=== PATIENT | female | born 1955 | race Caucasian/White ===

== ENCOUNTER → 2016-10-21 | Outpatient (CLI) | payer OTHER ==
[~2016-10-21] MED LIST: ACTONEL; ACTONEL 35MG TA35 MG PO; ACTONEL35 MG PO; ALTACE 2.5MG T2.5 MG PO; ALTACE 5MG5 MG PO; AMBIEN CR6.25 MG PO; ARICEPT; BISOPROLOL5 MG PO; CALCIUM 1200 W/1 SGL PO; CALCIUM 500500 M2 PO; CALTRATE 600 +1 TAB PO; CALTRATE-600 W600 MG PO; CENTRUM SILVER1 TA1 PO; CETIRIZINE PO; CLARITIN; CLARITIN 1010 MG/TAB PO; CLARITIN10 MG PO; CLORAZEPATE3.75 MG PO; CO ENZYME Q-1050 MG PO; CYMBALTA; CYMBALTA 30MG30 MG PO; CYMBALTA 60MG60 MG PO; CYMBALTA60 MG PO; DOMPERIDONE10 MG/CAP PO; DOXYCYCLINE 10100 MG PO; FISH OIL CONC1000 MG PO; FLAX SEED OIL1000 MG PO; FLEXERIL; FLEXERIL 1010 MG/TAB PO; FLEXERIL PO; GABAPENTIN300 M1 PO; GABAPENTIN600 MG PO; GABITRIL4 MG PO; GLUTAMINE PO; HCTZ; HCTZ 25MG25 MG PO; INDERAL; INDERAL 10MG10 MG PO; INDERAL 20MG20 MG PO; INDERAL LA 60MG60 MG PO; INDERAL PO; LORATADINE10 MG PO; LYRICA; LYRICA75 MG PO; MANGANESE PO; MUCINEX PO; MULTIPLE VITAMI1 CAP PO; MVI; NASONEX SPRAY IH; NASONEX SPRAY NS; NASONEX0.05 MG/AC NS; NATURAL E400 IU PO; NATURE'S BLEND1 T16 PO; ONE DAILY1 TA2 PO; PANCREATIC ENZY1 CAP PO; PANTOPRAZOLE40 MG PO; PREMARIN CREAM; PRILOSEC PO; PROPRANOLOL10 MG PO; PROTONIX 40MG T40 MG PO; PROTONIX40 MG/Pack PO; QVAR0.04 MG/AC IH; RAMIPRIL2.5 MG PO; RAMIPRIL5 MG PO; REMERON SOLTAB15 MG PO; REQUIP 1MG T1 MG/TAB PO; REQUIP5 MG PO; ROPINIROLE HYDRO1 MG PO; TOPAMAX 25MG25 MG PO; TOPAMAX25 M1 PO; TOPAMAX50 MG PO; TOPIRAMATE; TRAMADOL; ULTRAM 50MG TAB50 MG PO; ULTRAM50 MG PO; VALIUM 2MG T2 MG/TAB PO; VITAMIN B COMPL1 SGL PO; VITAMIN B125000 MCG SL; VITAMIN B6250 MG PO; VITAMIN D PO; VITAMIN D32000 IU PO; WELLBUTRIN XL150 MG PO; ZANTAC150 MG PO; ZYRTEC 10MG10 MG PO; [UNRECOGNIZED DRUG - OTHER] PO; [UNRECOGNIZED DRUG - OTHER] PO; [UNRECOGNIZED DRUG - OTHER] PO; [UNRECOGNIZED DRUG - OTHER] PO; [UNRECOGNIZED DRUG - OTHER] PO; asthma inhaler
== END ==
LOC: BHSO 10:02
DX: F33.42 Major depressive disorder, recurrent, in full remission (principal)

== ENCOUNTER → 2016-12-15 | Outpatient (CLI) | payer OTHER | LOC: BHSO 10:05 | DX: F06.32 Mood disorder due to known physiological condition with major depressive-like episode (principal) ==

== ENCOUNTER → 2017-01-30 | Outpatient (CLI) | payer OTHER | LOC: COL.RAD 08:55 | DX: M75.111 Incomplete rotator cuff tear or rupture of right shoulder, not specified as traumatic (principal); M75.21 Bicipital tendinitis, right shoulder; M19.011 Primary osteoarthritis, right shoulder; M24.111 Other articular cartilage disorders, right shoulder; Y99.9 Unspecified external cause status ==

== ENCOUNTER → 2017-03-06 | Outpatient (CLI) | payer OTHER | LOC: BHSO 15:20 | DX: F06.32 Mood disorder due to known physiological condition with major depressive-like episode (principal) ==

== ENCOUNTER → 2017-05-25 | Outpatient (CLI) | payer OTHER | LOC: BHSO 11:03 | DX: F06.32 Mood disorder due to known physiological condition with major depressive-like episode (principal) ==

== ENCOUNTER → 2017-06-03 | Outpatient (CLI) | payer OTHER | LOC: MC.RAD 09:00 | DX: Z12.31 Encounter for screening mammogram for malignant neoplasm of breast (principal) ==

== ENCOUNTER 2017-09-11 13:16 | Outpatient (CLI) | payer OTHER ==
[~2017-09-11] VITALS: Ht 157.5 cm; Wt 51.0 kg
[~2017-09-11 13:16] MED LIST changes: -NATURE'S BLEND1 T16 PO; +STRESS FORMULA1 T16 PO
[2017-09-11] MEDS ORDERED: OSCAL 500 TAB500 MG PO (14:19)
[2017-09-11] MEDS ORDERED: VITAMIN D 1001000 IU PO (14:20)
[2017-09-11] MEDS ORDERED: MAG-OX 400400 MG/TAB PO (14:20)
[2017-09-11 14:27] VITALS: BP 129/61; PULSE 69; TEMP 97.9
== END 2017-09-11 15:25 | disposition home or self-care (01) ==
LOC: EUO 13:16
DX: M81.0 Age-related osteoporosis without current pathological fracture (principal)
CPT/HCPCS: J3489

== ENCOUNTER → 2017-09-14 | Outpatient (CLI) | payer OTHER ==
[~2017-09-14] MED LIST changes: +MAG-OX 400400 MG/TAB PO; +OSCAL 500 TAB500 MG PO; +VITAMIN D 1001000 IU PO
== END ==
LOC: BHSO 10:43
DX: F06.32 Mood disorder due to known physiological condition with major depressive-like episode (principal)

== ENCOUNTER 2017-10-15 15:54 | Emergency (ER) | payer OTHER ==
[~2017-10-15] VITALS: Ht 157.5 cm; Wt 48.2 kg
[2017-10-15 15:57] VITALS: TEMP 96.8
[2017-10-15] MEDS ORDERED: PERCOCET 325 MG1 TA2 PO (17:28)
[2017-10-15] MEDS ORDERED: DULCOLAX STOOL100 MG PO (17:28)
[2017-10-15 18:27] VITALS: BP 125/53; PULSE 77
== END 2017-10-15 18:27 | disposition home or self-care (01) ==
LOC: COL.ER 15:54
DX: S52.321A Displaced transverse fracture of shaft of right radius, initial encounter for closed fracture (principal); S52.224A Nondisplaced transverse fracture of shaft of right ulna, initial encounter for closed fracture; S50.811A Abrasion of right forearm, initial encounter; F32.9 Major depressive disorder, single episode, unspecified; I10 Essential (primary) hypertension; W20.8XXA Other cause of strike by thrown, projected or falling object, initial encounter; Y92.009 Unspecified place in unspecified non-institutional (private) residence as the place of occurrence of the external cause
CPT/HCPCS: J3010

== ENCOUNTER 2017-10-27 08:09 | Day surgery (SDC) | payer OTHER ==
[~2017-10-27] VITALS: Ht 157.5 cm; Wt 51.8 kg
[~2017-10-27 08:09] MED LIST changes: +DULCOLAX STOOL100 MG PO; +PERCOCET 325 MG1 TA2 PO
[2017-10-27 09:24] VITALS: BP 123/58; PULSE 77; TEMP 97.9
[2017-10-27 14:19] VITALS: BP 118/56; PULSE 69
[2017-10-27 14:34] VITALS: BP 106/45; PULSE 66; TEMP 97.5
[2017-10-27 14:49] VITALS: BP 116/51; PULSE 73
[2017-10-27 15:04] VITALS: BP 117/54; PULSE 79
[2017-10-27 15:34] VITALS: BP 105/50; PULSE 78
== END 2017-10-27 15:55 | disposition home or self-care (01) ==
LOC: SDCO 08:09
DX: S52.321A Displaced transverse fracture of shaft of right radius, initial encounter for closed fracture (principal); S52.221A Displaced transverse fracture of shaft of right ulna, initial encounter for closed fracture; J45.909 Unspecified asthma, uncomplicated; G47.33 Obstructive sleep apnea (adult) (pediatric); M19.90 Unspecified osteoarthritis, unspecified site; G43.909 Migraine, unspecified, not intractable, without status migrainosus; F32.9 Major depressive disorder, single episode, unspecified; I12.9 Hypertensive chronic kidney disease with stage 1 through stage 4 chronic kidney disease, or unspecified chronic kidney disease; N18.2 Chronic kidney disease, stage 2 (mild); G89.18 Other acute postprocedural pain
CPT/HCPCS: C1713; J1100; J2250; J2405; J2704; J3010; J7120

== ENCOUNTER → 2017-11-16 | Outpatient (CLI) | payer OTHER | LOC: BHSO 10:46 | DX: F06.32 Mood disorder due to known physiological condition with major depressive-like episode (principal) | CPT/HCPCS: G0463 ==

== ENCOUNTER → 2018-02-02 | Outpatient (CLI) | payer OTHER | LOC: BHSO 14:31 | DX: F06.32 Mood disorder due to known physiological condition with major depressive-like episode (principal) | CPT/HCPCS: G0463 ==

== ENCOUNTER 2018-02-03 15:00 | Outpatient (RCR) | payer OTHER | END 2018-02-07 | disposition home or self-care (01) | LOC: WSOT | DX: Z47.89 Encounter for other orthopedic aftercare (principal) ==

== ENCOUNTER 2018-02-24 15:00 | Outpatient (RCR) | payer OTHER | END 2018-03-03 09:09 | disposition home or self-care (01) | LOC: WSOT 15:00 | DX: S52.91XD Unspecified fracture of right forearm, subsequent encounter for closed fracture with routine healing (principal) ==

== ENCOUNTER → 2018-05-05 | Outpatient (CLI) | payer OTHER | LOC: BHSO 13:21 | DX: F06.32 Mood disorder due to known physiological condition with major depressive-like episode (principal) | CPT/HCPCS: G0463 ==

== ENCOUNTER → 2018-05-13 | Outpatient (CLI) | payer OTHER | LOC: COL.LAB 13:14 | PROVIDERS: Internal Medicine Endocrinology, Diabetes & Metabolism | DX: M81.0 Age-related osteoporosis without current pathological fracture (principal) ==

== ENCOUNTER → 2018-05-14 | Outpatient (CLI) | payer OTHER | LOC: COL.CARD 08:00 | DX: R03.0 Elevated blood-pressure reading, without diagnosis of hypertension (principal) ==

== ENCOUNTER 2018-07-29 01:29 | Emergency (ER) | payer OTHER ==
[~2018-07-29] VITALS: Ht 157.5 cm; Wt 59.1 kg
[2018-07-29 01:32] VITALS: BP 131/72; TEMP 98.2
[2018-07-29 02:25] LABS: BASO % 0.5 % (0.0-2.0); EOS # 0.1 (0.0-0.7); EOS % 1.9 % (0-4.0); GRAN % 48.1 % (42.2-75.2); HEMATOCRIT 38.4 % (37.0-47.0); HEMOGLOBIN 13.1 g/dl (12.5-16.0); LYMPH # 2.4 (1.2-3.4); MEAN CELL VOLUME 91 fl (80.0-100.0); MEAN CORPUSCULAR HEMOGLOBIN 31 pg (27.0-31.0); MEAN CORPUSCULAR HGB CONC 34 g/dl (33.0-37.0); MEAN PLATELET VOLUME 8.9 fl (7.4-10.4); MONO # 0.7 (0.1-0.6); MONO % 11.2 % (1.7-9.3); PLATELET COUNT 244 K/mm3 (130-400); RED BLOOD COUNT 4.24 M/mm3 (4.10-5.30); REDCELL DISTRIBUTION WIDTH-CV 12.8 % (11.5-14.5)
[2018-07-29] MEDS ORDERED: TAZTIA120 (02:33)
[2018-07-29] MEDS ORDERED: WELLBUTRIN XL300 M1 PO (02:33)
[2018-07-29] MEDS ORDERED: REQUIP 1MG T1 MG/TAB PO (02:34)
[2018-07-29] MEDS ORDERED: CYMBALTA 20MG20 MG PO (02:34)
[2018-07-29 02:50] LABS: ALANINE AMINOTRANSFERASE 35 U/L (9-52); ALBUMIN 3.9 gm/dL (3.5-5.0); ALKALINE PHOSPHATASE 62 U/L (50-136); ANION GAP 6 mmol/L (7-16); AST,SGOT 25 U/L (15-37); BILIRUBIN,TOTAL 0.3 mg/dL (0.0-1.0); BLOOD UREA NITROGEN 18 mg/dL (7-17); CALCIUM 9.5 mg/dL (8.4-10.2); CARBON DIOXIDE 31 mmol/L (22-30); CHLORIDE 105 mmol/L (98-107); CREATININE, serum 0.93 mg/dL (0.52-1.25); GLUCOSE 94 mg/dL (74-106); POTASSIUM 4.5 mmol/L (3.4-5.0); SODIUM 141 mmol/L (137-145); TOTAL PROTEIN 6.9 gm/dL (6.4-8.2)
[2018-07-29 03:02] LABS: TROPONIN-I < 0.012 ng/mL (0.000-0.034)
[2018-07-29] MEDS ORDERED: FLEXERIL 1010 MG/TAB PO (03:05)
[2018-07-29 04:23] VITALS: PULSE 65
== END 2018-07-29 04:24 | disposition home or self-care (01) ==
LOC: COL.ER 01:29
PROVIDERS: Physician Assistant
DX: R56.9 Unspecified convulsions (principal); R07.89 Other chest pain; R25.2 Cramp and spasm; I10 Essential (primary) hypertension; F32.9 Major depressive disorder, single episode, unspecified; F41.9 Anxiety disorder, unspecified
CPT/HCPCS: Q9967

== ENCOUNTER 2018-08-07 12:38 | Observation (INO) | payer OTHER ==
[~2018-08-07] VITALS: Ht 157.5 cm; Wt 58.0 kg
[~2018-08-07 12:38] MED LIST changes: +CYMBALTA 20MG20 MG PO; +TAZTIA120; +WELLBUTRIN XL300 M1 PO
[2018-08-07 13:35] LABS: BASO % 0.4 % (0.0-2.0); EOS # 0.1 (0.0-0.7); EOS % 1.4 % (0-4.0); GRAN % 53.2 % (42.2-75.2); HEMATOCRIT 40.4 % (37.0-47.0); HEMOGLOBIN 13.9 g/dl (12.5-16.0); LYMPH # 1.9 (1.2-3.4); LYMPH % 33.8 % (20.0-51.0); MEAN CELL VOLUME 91 fl (80.0-100.0); MEAN CORPUSCULAR HEMOGLOBIN 31 pg (27.0-31.0); MEAN CORPUSCULAR HGB CONC 34 g/dl (33.0-37.0); MEAN PLATELET VOLUME 9.1 fl (7.4-10.4); MONO # 0.6 (0.1-0.6); MONO % 10.8 % (1.7-9.3); PLATELET COUNT 236 K/mm3 (130-400); RED BLOOD COUNT 4.45 M/mm3 (4.10-5.30); REDCELL DISTRIBUTION WIDTH-CV 12.4 % (11.5-14.5)
[2018-08-07 13:49] LABS: ALANINE AMINOTRANSFERASE 29 U/L (9-52); ALBUMIN 4.2 gm/dL (3.5-5.0); ALKALINE PHOSPHATASE 61 U/L (50-136); ANION GAP 6 mmol/L (7-16); AST,SGOT 38 U/L (15-37); BILIRUBIN,TOTAL 0.5 mg/dL (0.0-1.0); BLOOD UREA NITROGEN 20 mg/dL (7-17); CARBON DIOXIDE 27 mmol/L (22-30); CHLORIDE 105 mmol/L (98-107); CREATININE, serum 0.81 mg/dL (0.52-1.25); GLUCOSE 90 mg/dL (74-106); MAGNESIUM 2.2 mg/dL (1.6-2.3); SODIUM 137 mmol/L (137-145); TOTAL PROTEIN 7.2 gm/dL (6.4-8.2)
[2018-08-07 14:00] LABS: ALCOHOL(ethanol),MEDICAL < 10 mg/dL
[2018-08-07 14:04] LABS: PROLACTIN 7.3 ng/mL (3.0-18.6)
[2018-08-07 15:47] LABS: COLLECTION METHOD CLEAN CATCH
[2018-08-07 15:52] LABS: MUCOUS Present /lpf; PH 6 (5-8); SQUAMOUS EPITHELIAL 0-2 /hpf; URINE APPEARANCE Clear; URINE BACTERIA Rare /hpf; URINE BILIRUBIN Negative (NEGATIVE); URINE BLOOD Negative (NEGATIVE); URINE COLOR Straw; URINE GLUCOSE Negative (NEGATIVE); URINE KETONE Negative (NEGATIVE); URINE LEUKOCYTE ESTERASE Negative (NEGATIVE); URINE NITRATE Negative (NEGATIVE); URINE PROTEIN(semi-quant) Negative (NEGATIVE); URINE RBC 0-2 /hpf; URINE UROBILINOGEN Negative (NEGATIVE); URINE WBC 0-2 /hpf
[2018-08-07 16:01] LABS: TRICYCLIC ANTIDEPRESS URINE NEGATIVE
[2018-08-07 18:11] VITALS: BP 110/85; PULSE 76; TEMP 98.2
[2018-08-07] MEDS ORDERED: ATIVAN 0.50.5 MG/TAB PO (18:36)
[2018-08-08 00:40] VITALS: BP 108/55; PULSE 61; TEMP 98.5
[2018-08-08 04:08] VITALS: BP 116/45; PULSE 63; TEMP 98.5
[2018-08-08 06:00] LABS: BASO % 0.2 % (0.0-2.0); EOS # 0.1 (0.0-0.7); GRAN # 2.1 (1.4-6.5); GRAN % 46.2 % (42.2-75.2); HEMATOCRIT 39.4 % (37.0-47.0); HEMOGLOBIN 13.3 g/dl (12.5-16.0); LYMPH # 1.9 (1.2-3.4); LYMPH % 41.1 % (20.0-51.0); MEAN CELL VOLUME 91 fl (80.0-100.0); MEAN CORPUSCULAR HEMOGLOBIN 31 pg (27.0-31.0); MEAN CORPUSCULAR HGB CONC 34 g/dl (33.0-37.0); MEAN PLATELET VOLUME 9.1 fl (7.4-10.4); MONO # 0.5 (0.1-0.6); MONO % 10.3 % (1.7-9.3); PLATELET COUNT 210 K/mm3 (130-400); RED BLOOD COUNT 4.31 M/mm3 (4.10-5.30); REDCELL DISTRIBUTION WIDTH-CV 12.5 % (11.5-14.5)
[2018-08-08 06:10] LABS: CALCIUM 8.9 mg/dL (8.4-10.2); CREATININE, serum 0.83 mg/dL (0.52-1.25); MAGNESIUM 2.2 mg/dL (1.6-2.3); PHOSPHOROUS 3.4 mg/dL (2.5-4.5); POTASSIUM 4.3 mmol/L (3.4-5.0)
[2018-08-08 06:39] LABS: THYROID STIMULATING HORMONE 5.26 uIU/mL (0.465-4.680)
[2018-08-08 09:13] VITALS: BP 130/73; PULSE 71; TEMP 97.9
[2018-08-08 13:01] VITALS: BP 98/51; PULSE 84; TEMP 98.3
[2018-08-08 17:49] VITALS: BP 131/56; PULSE 75; TEMP 98.3
[2018-08-08 20:00] VITALS: BP 139/75; PULSE 79; TEMP 97.7
[2018-08-09] VITALS: BP 95/44; PULSE 55; TEMP 97.9
[2018-08-09 04:00] VITALS: BP 122/56; PULSE 73; TEMP 97
[2018-08-09 06:22] VITALS: BP 95/44; PULSE 55
[2018-08-09 07:59] VITALS: BP 100/46; PULSE 82; TEMP 98.1
[2018-08-09 12:01] VITALS: BP 128/60; PULSE 79; TEMP 98.2
[2018-08-09 15:16] VITALS: BP 107/42; PULSE 78; TEMP 97.8
[2018-08-10 00:14] VITALS: BP 96/47; PULSE 96; TEMP 97.3
[2018-08-10 05:55] LABS: BASO % 0.5 % (0.0-2.0); EOS # 0.1 (0.0-0.7); EOS % 1.5 % (0-4.0); GRAN # 1.7 (1.4-6.5); GRAN % 44.2 % (42.2-75.2); HEMATOCRIT 38.2 % (37.0-47.0); HEMOGLOBIN 13.1 g/dl (12.5-16.0); LYMPH # 1.6 (1.2-3.4); LYMPH % 39.8 % (20.0-51.0); MEAN CELL VOLUME 90 fl (80.0-100.0); MEAN CORPUSCULAR HEMOGLOBIN 31 pg (27.0-31.0); MEAN CORPUSCULAR HGB CONC 34 g/dl (33.0-37.0); MEAN PLATELET VOLUME 9.1 fl (7.4-10.4); MONO # 0.5 (0.1-0.6); MONO % 13.5 % (1.7-9.3); PLATELET COUNT 218 K/mm3 (130-400); RED BLOOD COUNT 4.26 M/mm3 (4.10-5.30); REDCELL DISTRIBUTION WIDTH-CV 12.4 % (11.5-14.5)
[2018-08-10 06:10] LABS: CALCIUM 8.9 mg/dL (8.4-10.2); CREATININE, serum 0.85 mg/dL (0.52-1.25); POTASSIUM 4.3 mmol/L (3.4-5.0)
[2018-08-10 07:39] VITALS: BP 117/58; PULSE 80; TEMP 97.9
[2018-08-10 11:01] VITALS: BP 133/74; PULSE 74; TEMP 97.8
[2018-08-10] MEDS ORDERED: LAMICTAL 25MG T25 MG PO (11:44)
[2018-08-10 11:58] LABS: HIV 1/2 Antibodies Non-Reactive; HIV-1p24 Antigen Non-Reactive
[2018-08-11 00:55] LABS: RPR (VDRL) Negative (Negative)
[2018-08-12 12:28] LABS: LYME DISEASE ANTIBODIES Negative (Negative)
== END 2018-08-10 13:25 | disposition home or self-care (01) ==
LOC: COL.ER 12:38 → SURG 17:20
PROVIDERS: Hospitalist; Internal Medicine Infectious Disease; Nurse Practitioner Primary Care; Physician Assistant
DX: G40.909 Epilepsy, unspecified, not intractable, without status epilepticus (principal); R52 Pain, unspecified; F32.9 Major depressive disorder, single episode, unspecified; F41.9 Anxiety disorder, unspecified; I10 Essential (primary) hypertension; G25.81 Restless legs syndrome; E03.9 Hypothyroidism, unspecified; G47.33 Obstructive sleep apnea (adult) (pediatric); Z90.710 Acquired absence of both cervix and uterus; Z88.8 Allergy status to other drugs, medicaments and biological substances; Z88.6 Allergy status to analgesic agent; Z88.0 Allergy status to penicillin; Z88.3 Allergy status to other anti-infective agents; Z91.018 Allergy to other foods; Z88.2 Allergy status to sulfonamides; Z88.1 Allergy status to other antibiotic agents; Z91.012 Allergy to eggs; Z91.011 Allergy to milk products; Z91.040 Latex allergy status; Z91.048 Other nonmedicinal substance allergy status
CPT/HCPCS: 99232-AI; 99233-AI; A9585; G0378; G8978-GP; G8979-GP; G8987-GO; G8988-GO; J1200; J1644; J1885; J2060; J2270; J2405

== ENCOUNTER 2018-09-21 14:58 | Outpatient (CLI) | payer OTHER ==
[~2018-09-21] VITALS: Ht 157.5 cm; Wt 58.1 kg
[~2018-09-21 14:58] MED LIST changes: +ATIVAN 0.50.5 MG/TAB PO; +LAMICTAL 25MG T25 MG PO
[2018-09-21 15:21] VITALS: BP 153/60; PULSE 64; TEMP 98.2
[2018-09-21 15:37] LABS: CALCIUM 9.4 mg/dL (8.4-10.2); CREATININE, serum 1.01 mg/dL (0.52-1.25)
== END 2018-09-21 16:30 | disposition home or self-care (01) ==
LOC: EUO 14:58
PROVIDERS: Family Medicine
DX: M81.0 Age-related osteoporosis without current pathological fracture (principal); E55.9 Vitamin D deficiency, unspecified
CPT/HCPCS: J3489

== ENCOUNTER → 2018-12-03 | Outpatient (CLI) | payer OTHER | LOC: BHSO 15:55 | DX: F06.32 Mood disorder due to known physiological condition with major depressive-like episode (principal) | CPT/HCPCS: G0463 ==

== ENCOUNTER → 2019-03-01 | Outpatient (CLI) | payer OTHER | LOC: BHSO 15:24 | DX: F06.32 Mood disorder due to known physiological condition with major depressive-like episode (principal) | CPT/HCPCS: G0463 ==

== ENCOUNTER → 2019-05-31 | Outpatient (CLI) | payer OTHER | LOC: BHSO 13:56 | DX: F06.32 Mood disorder due to known physiological condition with major depressive-like episode (principal) | CPT/HCPCS: G0463 ==

== ENCOUNTER → 2019-07-05 | Outpatient (CLI) | payer OTHER | LOC: MC.RAD 10:38 | DX: Z12.31 Encounter for screening mammogram for malignant neoplasm of breast (principal) ==

== ENCOUNTER → 2019-09-13 | Outpatient (CLI) | payer OTHER | LOC: BHSO 14:57 | DX: F06.32 Mood disorder due to known physiological condition with major depressive-like episode (principal) | CPT/HCPCS: G0463 ==

== ENCOUNTER → 2020-03-13 | Outpatient (CLI) | payer OTHER | LOC: BHSO 10:35 | DX: F06.32 Mood disorder due to known physiological condition with major depressive-like episode (principal) | CPT/HCPCS: G0463 ==

== ENCOUNTER → 2020-07-05 | Outpatient (CLI) | payer OTHER | LOC: COL.LAB | DX: M79.89 Other specified soft tissue disorders (principal) ==

== ENCOUNTER → 2020-10-16 | Outpatient (CLI) | payer OTHER | LOC: ZCOL.LAB 14:54 | DX: I10 Essential (primary) hypertension (principal) ==

== ENCOUNTER 2020-10-18 15:46 | Emergency (ER) | payer OTHER ==
[~2020-10-18] VITALS: Ht 157.5 cm; Wt 57.3 kg
[2020-10-18 15:55] VITALS: TEMP 97.9
[2020-10-18 17:12] LABS: BASO % 0.4 % (0.0-2.0); EOS # 0.1 (0.0-0.7); EOS % 0.8 % (0-4.0); GRAN # 4.2 (1.4-6.5); GRAN % 54.3 % (42.2-75.2); HEMATOCRIT 40.2 % (37.0-47.0); HEMOGLOBIN 13.8 g/dl (12.5-16.0); LYMPH # 2.7 (1.2-3.4); LYMPH % 35.1 % (20.0-51.0); MEAN CELL VOLUME 89 fl (80.0-100.0); MEAN CORPUSCULAR HEMOGLOBIN 31 pg (27.0-31.0); MEAN CORPUSCULAR HGB CONC 34 g/dl (33.0-37.0); MEAN PLATELET VOLUME 9.4 fl (7.4-10.4); MONO # 0.7 (0.1-0.6); MONO % 9.1 % (1.7-9.3); PLATELET COUNT 295 K/mm3 (130-400); RED BLOOD COUNT 4.52 M/mm3 (4.10-5.30); REDCELL DISTRIBUTION WIDTH-CV 12.5 % (11.5-14.5)
[2020-10-18 17:26] LABS: ALANINE AMINOTRANSFERASE 23 U/L (4-34); ALBUMIN 4.9 gm/dL (3.5-5.0); ALKALINE PHOSPHATASE 68 U/L (50-136); ANION GAP 11 mmol/L (7-16); AST,SGOT 35 U/L (15-37); BILIRUBIN,TOTAL 0.8 mg/dL (0.0-1.0); BLOOD UREA NITROGEN 19 mg/dL (7-17); CARBON DIOXIDE 25 mmol/L (22-30); CHLORIDE 102 mmol/L (98-107); CREATININE, serum 0.95 (0.52-1.25); GLUCOSE 100 mg/dL (74-106); POTASSIUM 3.7 mmol/L (3.4-5.0); SODIUM 138 mmol/L (137-145); TOTAL PROTEIN 8.1 gm/dL (6.4-8.2)
[2020-10-18 17:43] LABS: TROPONIN-I < 0.012 ng/mL (0.000-0.035)
[2020-10-18 19:00] VITALS: BP 122/57; PULSE 76
== END 2020-10-18 19:00 | disposition home or self-care (01) ==
LOC: COL.ER 15:46
PROVIDERS: Nurse Practitioner
DX: R06.02 Shortness of breath (principal); Z20.822 Contact with and (suspected) exposure to COVID-19; Z88.6 Allergy status to analgesic agent; Z88.0 Allergy status to penicillin; Z88.1 Allergy status to other antibiotic agents; Z88.8 Allergy status to other drugs, medicaments and biological substances
CPT/HCPCS: J2060; Q9967

== ENCOUNTER 2020-11-02 15:27 | Emergency (ER) | payer OTHER ==
[~2020-11-02] VITALS: Ht 157.5 cm; Wt 55.9 kg
[2020-11-02 15:38] VITALS: TEMP 96.7
[2020-11-02 18:30] VITALS: BP 144/71; PULSE 83
== END 2020-11-02 18:30 | disposition home or self-care (01) ==
LOC: COL.ER 15:27
DX: R06.00 Dyspnea, unspecified (principal); T88.1XXA Other complications following immunization, not elsewhere classified, initial encounter; F41.9 Anxiety disorder, unspecified; Z88.6 Allergy status to analgesic agent; Z88.2 Allergy status to sulfonamides; Z88.0 Allergy status to penicillin; Z88.1 Allergy status to other antibiotic agents; Z88.8 Allergy status to other drugs, medicaments and biological substances
CPT/HCPCS: J1100

== ENCOUNTER → 2020-12-11 | Outpatient (CLI) | payer OTHER ==
[2020-12-11 13:08] LABS: CALCIUM 9.1 mg/dL (8.4-10.2); CREATININE, serum 0.78 (0.52-1.25); POTASSIUM 4.1 mmol/L (3.4-5.0)
== END ==
LOC: COL.RAD
PROVIDERS: Family Medicine
DX: N28.89 Other specified disorders of kidney and ureter (principal); Z98.890 Other specified postprocedural states; R82.5 Elevated urine levels of drugs, medicaments and biological substances; I10 Essential (primary) hypertension; Z90.710 Acquired absence of both cervix and uterus
CPT/HCPCS: Q9967

== ENCOUNTER → 2021-02-26 | Outpatient (CLI) | payer OTHER | LOC: COL.RAD 09:00 | DX: R25.1 Tremor, unspecified (principal); M79.604 Pain in right leg; M79.605 Pain in left leg; M54.5 Low back pain; G89.29 Other chronic pain; R25.9 Unspecified abnormal involuntary movements; R29.2 Abnormal reflex | CPT/HCPCS: A9585 ==

== ENCOUNTER 2021-06-14 15:00 | Outpatient (RCR) | payer MEDICARE, OTHER ==
[2021-07-30] MEDS ORDERED: ALTACE 2.5MG T2.5 MG PO (08:36)
[2021-07-30] MEDS ORDERED: ZYRTEC 10MG10 MG PO (08:37)
== END 2021-08-18 | disposition home or self-care (01) ==
LOC: MKS.ESL.OT
DX: G56.03 Carpal tunnel syndrome, bilateral upper limbs (principal)

== ENCOUNTER → 2021-07-09 | Outpatient (CLI) | payer MEDICARE, OTHER | LOC: COL.RAD 08:54 | DX: M47.896 Other spondylosis, lumbar region (principal); M51.36 Other intervertebral disc degeneration, lumbar region; M50.221 Other cervical disc displacement at C4-C5 level; M48.02 Spinal stenosis, cervical region; R25.1 Tremor, unspecified; R25.9 Unspecified abnormal involuntary movements; R29.2 Abnormal reflex ==

== ENCOUNTER 2021-07-30 08:04 | Day surgery (SDC) | payer MEDICARE, OTHER ==
[~2021-07-30] VITALS: Ht 157.5 cm; Wt 52.8 kg
[2021-07-30] MEDS ORDERED: ALTACE 2.5MG T2.5 MG PO (08:36)
[2021-07-30] MEDS ORDERED: ZYRTEC 10MG10 MG PO (08:37)
[2021-07-30 08:58] VITALS: BP 155/73; PULSE 67; TEMP 97.7
[2021-07-30 10:15] VITALS: BP 121/63; PULSE 63; TEMP 97.8
--- NOTE | 2021-07-30 10:15 | NUR ---
PATIENT BROUGHT BACK TO ENDO ROOM 4 VIA CART. AMBULATED TO CHAIR WITHOUT DIFFICULTY. PLACED ON MONITORS, VITAL SIGNS STABLE. REPORT RECIEVED FROM MARY MERCEDES. REQUESTS SPRITE AND APPLESAUCE AT THIS TIME. TO PICK PATIENT UP. CALL NIEVES WITHIN REACH, WARM BLANKET PROVIDED. 1030- VITAL SIGNS STABLE. TOLERATING FOOD AND DRINK WITHOUT DIFFICULTY. DR. SCHULTE AT BEDSIDE TO EXPLAIN RESULTS. 1055- PATIENT STATES SHE FEELS READY TO GO HOME AT THIS TIME. IV REMOVED, INTACT. PATIENT TO GET DRESSED AT THIS TIME. 1105- PATIENT BROUGHT DOWN TO LOBBY VIA WHEEL CHAIR. TO DRIVE PATIENT HOME. ALL BELONGINGS IN HAND.
[2021-07-30 10:30] VITALS: BP 136/65; PULSE 70
[2021-07-30 10:45] VITALS: BP 145/80; PULSE 61
== END 2021-07-30 11:00 | disposition home or self-care (01) ==
LOC: SDCO 08:04
DX: K64.0 First degree hemorrhoids (principal); K57.30 Diverticulosis of large intestine without perforation or abscess without bleeding; K59.09 Other constipation; K92.1 Melena; Q79.60 Ehlers-Danlos syndrome, unspecified; J43.9 Emphysema, unspecified; J84.10 Pulmonary fibrosis, unspecified; I11.0 Hypertensive heart disease with heart failure; I50.30 Unspecified diastolic (congestive) heart failure; R56.9 Unspecified convulsions; F41.9 Anxiety disorder, unspecified; Z79.899 Other long term (current) drug therapy; Z86.11 Personal history of tuberculosis
CPT/HCPCS: J2704; J7120

== ENCOUNTER → 2021-11-05 | Outpatient (CLI) | payer MEDICARE, OTHER | LOC: COL.RAD 10:53 | DX: I71.4 Abdominal aortic aneurysm, without rupture (principal); I05.9 Rheumatic mitral valve disease, unspecified; Z90.710 Acquired absence of both cervix and uterus | CPT/HCPCS: Q9967 ==

== ENCOUNTER → 2022-03-14 | Outpatient (CLI) | payer MEDICARE, OTHER | LOC: COL.RAD 09:47 | DX: G20 Parkinson's disease (principal); R13.10 Dysphagia, unspecified ==

== ENCOUNTER → 2022-03-18 15:09 | Outpatient (RCR) | payer MEDICARE, OTHER | END | disposition home or self-care (01) | LOC: MKS.ESL.OT 08-19 13:00 | DX: G56.03 Carpal tunnel syndrome, bilateral upper limbs (principal) ==

== ENCOUNTER 2023-01-29 13:24 | Inpatient (IN) | payer MEDICARE, OTHER ==
[~2023-01-29] VITALS: Ht 154.9 cm; Wt 52.6 kg
[~2023-01-29 13:24] MED LIST changes: +ALDACTONE 25MG25 M1 PO; +ATIVAN 1MG T1 MG/TAB PO; +CARDIZEM CD 12120 MG PO; +COZAAR 50MG50 MG/TAB PO; +DESYREL 50MG50 MG PO; +GALZIN50 MG PO; +GLUTATHIONE RE500 MG PO; +L-GLUTAMINE500 M5 PO; +PEPCID 20MG TAB20 MG PO; +PHARMASSURE MA500 MG PO; +PHOS LO; +REQUIP XL4 MG PO; +REQUIP XL6 MG PO; +STOOL SOFTENER100 M2 PO; +SYSTANE 0.3-0.1 EACH OP; +THE MEDICINE S200 M2 PO; +VITAMIND3 5000 PO; +XIIDRA1 EACH OP
[2023-01-29 13:47] LABS: BASO % 0.4 % (0.0-2.0); EOS # 0.1 K/mm3 (0.0-0.7); EOS % 1.3 % (0.0-4.0); GRAN # 2.5 K/mm3 (1.4-6.5); GRAN % 47.3 % (42.2-75.2); HEMATOCRIT 37.8 % (37.0-47.0); HEMOGLOBIN 12.8 g/dl (12.5-16.0); LYMPH # 2.2 K/mm3 (1.2-3.4); LYMPH % 41.9 % (20.0-51.0); MEAN CELL VOLUME 93 fl (80.0-100.0); MEAN CORPUSCULAR HEMOGLOBIN 32 pg (27-31); MEAN CORPUSCULAR HGB CONC 34 g/dl (33.0-37.0); MONO # 0.5 K/mm3 (0.1-0.6); MONO % 9.1 % (1.7-9.3); PLATELET COUNT 237 K/mm3 (130-400); RED BLOOD COUNT 4.06 M/mm3 (4.10-5.30); REDCELL DISTRIBUTION WIDTH-CV 12.3 % (11.5-14.5)
[2023-01-29 14:06] LABS: ALANINE AMINOTRANSFERASE 9 U/L (0-55); ALBUMIN 4.6 gm/dL (3.4-4.8); ALKALINE PHOSPHATASE 60 U/L (40-150); ANION GAP 11 mmol/L (7-16); AST,SGOT 21 U/L (5-34); BILIRUBIN,TOTAL 0.6 mg/dL (0.2-1.2); BLOOD UREA NITROGEN 17 mg/dL (10-20); CALCIUM 9.8 mg/dL (8.4-10.2); CARBON DIOXIDE 26 mmol/L (23-31); CHLORIDE 104 mmol/L (98-107); CREATININE, serum 1.03 mg/dL (0.57-1.11); GLUCOSE 162 mg/dL (70-99); POTASSIUM 3.8 mmol/L (3.5-4.5); SODIUM 141 mmol/L (136-145); TOTAL PROTEIN 7.2 gm/dL (6.2-8.1)
[2023-01-29 14:57] LABS: COLLECTION METHOD CLEAN CATCH
[2023-01-29 15:06] LABS: PH 7.5 (5.0-8.5); URINE APPEARANCE Clear (CLEAR/HAZY); URINE BLOOD TRACE-INTACT (NEGATIVE); URINE COLOR Yellow (YELLOW); URINE GLUCOSE Negative (NEGATIVE); URINE KETONE Negative (NEGATIVE); URINE NITRATE Negative (NEGATIVE); URINE PROTEIN(semi-quant) Negative (NEGATIVE); URINE UROBILINOGEN 0.2 E.U/dL (0.2-1.0)
[2023-01-29 15:09] LABS: ALCOHOL(ethanol),MEDICAL < 10 mg/dL (0-10)
[2023-01-29 15:11] LABS: SQUAMOUS EPITHELIAL 0-2 /hpf (0-10); URINE BACTERIA None Seen /hpf (NONE SEEN); URINE RBC 0-2 /hpf (0-2)
[2023-01-29 15:19] LABS: TROPONIN-I < 0.010 ng/mL (0.00-0.033)
[2023-01-29] MEDS ORDERED: SINEMET 25/101 UDTAB PO (16:48)
--- NOTE | 2023-01-29 19:45 | NUR ---
RECEIVED REPORT FROM Tommy MERCEDES, STEVE. WAITING FOR PATIENT ARRIVAL FOR ADMIT TO ROOM 345.
[2023-01-29 20:11] VITALS: BP 137/60; PULSE 79; TEMP 98.2
[2023-01-29 21:06] LABS: CHOLESTEROL RISK RATIO 2.9
[2023-01-29] MEDS ORDERED: [UNRECOGNIZED DRUG - OTHER] PO (21:25)
[2023-01-30] VITALS (11 sets, daily range): BP systolic 113–153; BP diastolic 41–68; PULSE 74–86; TEMP 97.4–98.7
--- NOTE | 2023-01-30 06:37 | NUR ---
INFORMED DR ANAYA OF NEURO CONSULT WITH DOCTOR MENTIONING HE WILL SEE PATIENT TOMORROW, HE IS NOT MARKETING ASSOCIATE TODAY.
--- NOTE | 2023-01-30 07:20 | NUR ---
CHANGE OF SHIFT REPORT GIVEN TO DAY SHIFT RNASHLEY.
[2023-01-30 07:34] LABS: GRAN # 3.9 K/mm3 (1.4-6.5); GRAN % 87.1 % (42.2-75.2); HEMATOCRIT 34.7 % (37.0-47.0); HEMOGLOBIN 11.9 g/dl (12.5-16.0); LYMPH # 0.5 K/mm3 (1.2-3.4); MEAN CELL VOLUME 92 fl (80.0-100.0); MEAN CORPUSCULAR HEMOGLOBIN 32 pg (27-31); MEAN CORPUSCULAR HGB CONC 34 g/dl (33.0-37.0); MEAN PLATELET VOLUME 9.8 fl (7.4-10.4); MONO % 0.7 % (1.7-9.3); PLATELET COUNT 226 K/mm3 (130-400); RED BLOOD COUNT 3.76 M/mm3 (4.10-5.30)
[2023-01-30 07:55] LABS: ALBUMIN 3.7 gm/dL (3.4-4.8); CALCIUM 8.8 mg/dL (8.4-10.2); CREATININE, serum 0.99 mg/dL (0.57-1.11); MAGNESIUM 2.2 mg/dL (1.6-2.6); PHOSPHOROUS 2.6 mg/dL (2.3-4.7); POTASSIUM 4.4 mmol/L (3.5-4.5)
--- NOTE | 2023-01-30 08:50 | NUR ---
HOSPITALIST TEAM ROUNDING. NEUROLOGY UNAVAILABLE TODAY BUT WAS CONSULTED BY DOCUMENT MANAGEMENT SPECIALIST NURSE FOR CONSULT, SEE ORDERS. HOSPITALIST TEAM INFORMED NURSING THE MRI MACHINE IS DOWN, LIVE AMMUNITION INSPECTOR NOTIFIED TO POSSIBLY TRANSPORT PATIENT VIA EMS TODAY FOR MRI SCAN. ALSO CONTACTED 'S OFFICE FOR RECORDS.
--- NOTE | 2023-01-30 09:08 | NUR ---
Gas Appliance Repairer met with Patient at bedside to conduct Care Managment Assessment and discuss discharge planning. Patient lives in [place], [place] with her Yves P:[phone]. Patient is established with PCP, Dr. Brody and is covered by [facility] and [facility] for insurance. Patient denies the use of O2 and endorses the use of a 4WW prior to admission. Patient reports that she has needed assistance with ambulating in her home at times in the past week. Patient reports independence with IADLs. Patient reports to not have Advanced Directives at this time and requests AD paperwork. SW provided AD paperwork. Discharge Plan: Pending further treatment team assessment.
--- NOTE | 2023-01-30 09:50 | NUR ---
Initial visit; Patient thanked Search Engine Optimization Specialist for looking in on her and offering prayer and God's blessings that her body respond to the care she is receiving. Search Engine Optimization Specialist wished Kristin englihs.
--- NOTE | 2023-01-30 12:32 | NUR ---
MRI AT BEDSIDE TO SCREEN PATIENT BEFORE TRANSFER TO [facility] FOR IMAGING.
--- NOTE | 2023-01-30 12:50 | NUR ---
PATIENT LEAVING UNIT FOR MRI
--- NOTE | 2023-01-30 14:40 | NUR ---
PATIENT NOW BACK IN ROOM FROM MRI VIA EMS.
--- NOTE | 2023-01-30 20:30 | NUR ---
Pt doing okay at this time. She is sitting up in the chair. Spouse at bedside getting ready to leave. Assisted pt to the bed per request. Pt was unsteady and weak with transfer. Pt does have sporatic tremors. Pt having complaints of a headache which she stated she has had all day. She also has complaints of her calves aching. SCDs put on at this time per order. Pt denies any other needs, call light within reach, will continue to monitor
[2023-01-31] VITALS (7 sets, daily range): BP systolic 109–151; BP diastolic 56–67; PULSE 65–103; TEMP 98.1–98.6
[2023-01-31 07:03] LABS: BASO % 0.1 % (0.0-2.0); GRAN # 7.7 K/mm3 (1.4-6.5); GRAN % 84.9 % (42.2-75.2); HEMOGLOBIN 11.3 g/dl (12.5-16.0); LYMPH # 0.8 K/mm3 (1.2-3.4); LYMPH % 8.8 % (20.0-51.0); MEAN CELL VOLUME 89 fl (80.0-100.0); MEAN CORPUSCULAR HEMOGLOBIN 32 pg (27-31); MEAN CORPUSCULAR HGB CONC 36 g/dl (33.0-37.0); MEAN PLATELET VOLUME 9.9 fl (7.4-10.4); MONO # 0.5 K/mm3 (0.1-0.6); MONO % 5.9 % (1.7-9.3); PLATELET COUNT 210 K/mm3 (130-400); RED BLOOD COUNT 3.55 M/mm3 (4.10-5.30); REDCELL DISTRIBUTION WIDTH-CV 12.1 % (11.5-14.5)
[2023-01-31 07:08] LABS: HEMATOCRIT 31.6 % (37.0-47.0)
[2023-01-31 07:19] LABS: ALBUMIN 3.7 gm/dL (3.4-4.8); CALCIUM 8.9 mg/dL (8.4-10.2); CREATININE, serum 0.82 mg/dL (0.57-1.11); MAGNESIUM 2.4 mg/dL (1.6-2.6); PHOSPHOROUS 2.8 mg/dL (2.3-4.7); POTASSIUM 3.9 mmol/L (3.5-4.5)
--- NOTE | 2023-01-31 07:34 | NUR ---
Received shift report from the night nursesaranya RN.
--- NOTE | 2023-01-31 08:26 | NUR ---
Patient sitting at the edge of bed, alert and oriented. Pushes and mold puller done and noted tremors on the right hand. Patient denies shortness of air or pain at this time. Patient has no needs or concerns. Patient remains of high fall risk and bed alarm activated. See process intervention for notes.
[2023-01-31] MEDS ORDERED: NATURE'S BLEND100 M2 PO (08:45)
--- NOTE | 2023-01-31 10:31 | NUR ---
Follow-up; Kristin states she is going home which concerns her but knows there is nothing else Physicians can do here for her. She will have testing done and prepare to be sent where she can receive further help. Patient thanked Sld Educational Aide for checking on her, offering God's blessings, and keeping her in Sld Educational Aide's prayers.
--- NOTE | 2023-01-31 11:24 | NUR ---
Candice MERCEDES informs patient will d/c today and requires HH per physician. Labor Representative met with patient to discuss. Patient states belief she will benefit from HH services, and she is familiar with [facility] services as her spouse just discontinued services and the family is satisfied with their care. She is aware there are other area options for HH services, but she is comfortable utilizing [facility] for her own services and she consents to a referral sent. She feels comfortable with services to start Thursday as she has local family/adult children who can check-in with her to assure her needs are met until services established. Labor Representative confirms plan of care with Candice MERCEDES and Dr. Mcclellan. Labor Representative contacted Abhinav with [facility] and referral is accepted for Thursday. Labor Representative faxed referral with discharge orders. *Discharge to home today with supportive family and [facility] services*
[2023-01-31] MEDS ORDERED: TOPAMAX 25MG25 M1 PO (14:41)
--- NOTE | 2023-01-31 16:44 | NUR ---
Discharge instruction given , patient verbalized understanding, INT discontinued. Patient's spouse up on the unit to escort patient home. Patient left the premises at 1548.
== END 2023-01-31 15:48 | disposition home health service (06) | DRG 57 ==
LOC: COL.ER 13:24 → SURG 15:38 → EDBEDREQTM 17:54 → SURG 01-30 09:03
PROVIDERS: Emergency Medicine; ADMIT Internal Medicine
DX: G81.94 Hemiplegia, unspecified affecting left nondominant side (principal); I50.32 Chronic diastolic (congestive) heart failure; I47.1 Supraventricular tachycardia; G70.80 Lambert-Eaton syndrome, unspecified; G70.00 Myasthenia gravis without (acute) exacerbation; G95.9 Disease of spinal cord, unspecified; I11.0 Hypertensive heart disease with heart failure; I08.1 Rheumatic disorders of both mitral and tricuspid valves; J44.9 Chronic obstructive pulmonary disease, unspecified; G62.9 Polyneuropathy, unspecified; M81.0 Age-related osteoporosis without current pathological fracture; K21.9 Gastro-esophageal reflux disease without esophagitis; R26.9 Unspecified abnormalities of gait and mobility; H93.19 Tinnitus, unspecified ear; R73.9 Hyperglycemia, unspecified; G25.81 Restless legs syndrome; R25.1 Tremor, unspecified; F41.9 Anxiety disorder, unspecified; Z90.710 Acquired absence of both cervix and uterus; Z88.0 Allergy status to penicillin; Z88.2 Allergy status to sulfonamides; Z88.1 Allergy status to other antibiotic agents; Z88.5 Allergy status to narcotic agent
CPT/HCPCS: G0378; J1100; J3411; J3480; J7030; Q9967

== ENCOUNTER 2023-03-19 19:33 | Emergency (ER) | payer MEDICARE, OTHER ==
[~2023-03-19] VITALS: Ht 154.9 cm; Wt 50.5 kg
[~2023-03-19 19:33] MED LIST changes: +MEDROL 4MG DOSPA4 MG PO; +NATURE'S BLEND100 M2 PO; +SINEMET 25/101 UDTAB PO; +TOPAMAX 25MG25 M1 PO; +[UNRECOGNIZED DRUG - OTHER] PO
[2023-03-19 19:41] VITALS: TEMP 97.7
[2023-03-19 20:08] LABS: BASO % 0.1 % (0.0-2.0); GRAN # 5.8 K/mm3 (1.4-6.5); LYMPH # 0.9 K/mm3 (1.2-3.4); LYMPH % 12.4 % (20.0-51.0); MEAN CELL VOLUME 90 fl (80.0-100.0); MEAN CORPUSCULAR HEMOGLOBIN 32 pg (27-31); MEAN CORPUSCULAR HGB CONC 35 g/dl (33.0-37.0); MEAN PLATELET VOLUME 9.6 fl (7.4-10.4); MONO # 0.4 K/mm3 (0.1-0.6); MONO % 6.2 % (1.7-9.3); PLATELET COUNT 199 K/mm3 (130-400); RED BLOOD COUNT 4.07 M/mm3 (4.10-5.30); REDCELL DISTRIBUTION WIDTH-CV 12.3 % (11.5-14.5)
[2023-03-19 20:09] LABS: HEMATOCRIT 36.7 % (37.0-47.0)
[2023-03-19] MEDS ORDERED: LORazepam 2 MG/ML 1 ML VIAL IV ONE (20:15)
[2023-03-19] MEDS ORDERED: NS 1,000 ML IV ONE (20:15)
[2023-03-19 20:20] LABS: ALBUMIN 4.5 gm/dL (3.4-4.8); BILIRUBIN,TOTAL 0.4 mg/dL (0.2-1.2); C-REACTIVE PROTEIN 0.04 mg/dL (0.00-0.50); CALCIUM 9.8 mg/dL (8.4-10.2); CREATININE, serum 0.99 mg/dL (0.57-1.11); POTASSIUM 3.8 mmol/L (3.5-4.5); TOTAL PROTEIN 7.2 gm/dL (6.2-8.1)
[2023-03-19] MEDS ORDERED: Home LORazepam 0.5 MG #3 TAB/PACK PO ONE (22:00)
[2023-03-19] MEDS ORDERED: ATIVAN 0.50.5 MG/TAB PO (22:00)
[2023-03-19 22:30] VITALS: BP 128/58; PULSE 61
[2023-08-18] MEDS ORDERED: MIRAPEX0.25 MG PO (10:26)
[2024-02-08] MEDS ORDERED: TEZSPIRE210 MG/1.9 INJ (10:12)
[2024-02-08] MEDS ORDERED: ABILIFY5 MG PO (10:13)
== END 2023-03-19 22:30 | disposition home or self-care (01) ==
LOC: COL.ER 19:33
PROVIDERS: Emergency Medicine
DX: R25.1 Tremor, unspecified (principal); R51.9 Headache, unspecified; R20.0 Anesthesia of skin; Z91.040 Latex allergy status; Z28.311 Partially vaccinated for COVID-19; Z88.8 Allergy status to other drugs, medicaments and biological substances
CPT/HCPCS: J2060; J7030